=== PATIENT | male | born 1950 | race Caucasian/White ===

== ENCOUNTER 2017-06-04 10:37 | Day surgery (SDC) | payer MEDICARE, BC, MEDICAID ==
--- NOTE | 2017-06-04 07:24 | History and Physical Report ---
DATE: 06/03/2017. CHIEF COMPLAINT AND HISTORY OF CHIEF COMPLAINT: This patient presents with a history of a spinal surgery and pain which is quite extensive throughout the back and legs. He is here for an implanted spinal catheter infusion trial with hydromorphone to determine if the implantation of a permanent system can be of any value in pain control. He has had four spinal surgeries and was referred to this facility for consideration of placement of a pump. His treatment history has been extensive. Conservative therapy has all failed. His diagnostics confirm a decompression laminectomy from 3-4 to 5-1. PAST MEDICAL HISTORY: Chronic renal disease, chronic obstructive pulmonary disease, coronary artery disease, type 1 diabetes. MEDICATIONS ON ADMISSION: To be provided. ALLERGIES: To be provided. REVIEW OF SYSTEMS: The patient seems appropriate and in no acute distress. The remainder of the systems review shows difficulty sleeping, degenerative arthritis. PHYSICAL EXAMINATION: General: Height and weight are not available. Vital Signs: Not available. HEENT: Within normal limits. Lungs: Clear. Heart: Regular rate and rhythm. Abdomen: Nontender. Musculoskeletal: Examination of the musculoskeletal system shows diffuse pain and tenderness of the lumbar spine with an adjacent laminectomy scar. His lower extremity functionality is compromised. There are sensory field deficits across multiple distributions across the front and back surface of both legs. His motor functionality is reduced. His strength is reduced. Ambulation: Assistive device dependent. Neurologic: Cranial nerves are intact. IMPRESSION: 1. POSTLUMBAR LAMINECTOMY SYNDROME, ICD-10 CODE M96.1. 2. LUMBAR RADICULITIS, ICD-10 CODE M54.16 AND M54.17. PLAN: The patient is here for an implanted spinal catheter infusion trial with hydromorphone to determine if the implantation of a permanent pump can be of any value in his pain control. All of the potential risks, side effects, and complications have been carefully reviewed and discussed including spinal cord injury, nerve root injury, paralysis, and spinal headache. Information from the activity therapy specialist has been provided, reviewed, and discussed. He was put in contract with a [employer] hospital insurance representative who also reviewed the procedure, its risks, conduct, and what to expect with the trial and the implant. He also understands the spinal catheter will be implanted and that an incision will be made with anchoring of the catheter to the supraspinous fascia. The intent is to reduce the incidence of spinal headaches. An epidural blood patch ideally will be performed. However, the patient has had a decompression laminectomy in the optimal areas for the blood patch, and this may limit the option. The patient understands and has agreed to proceed. We will consider the procedure outpatient, although an overnight stay will be evaluated. The medications of choice are hydromorphone or Dilaudid. JOB NUMBER: [id number] cc: Martha Perales D.O. MTDD
[~2017-06-04 10:37] MED LIST: ACETAMINOPHEN 1,000 MG/100 ML BTL IV ONE; CEFAZOLIN 2 Gram 2 GM/50 ML BAG IVPB ONE; FAMOTIDINE 20MG TABLET PO ONE; HYDROMORPHONE PF 2MG/ML AMP 0.008 MG in 0.9 % SODIUM CHLORIDE 10ML VIA 0.996 ML IV ONE; HYDROMORPHONE PF 2MG/ML AMP 4 MG in 0.9 % SODIUM CHLORIDE 500ML 498 ML IV ONE; MECLIZINE 25 MG TABLET PO ONE; METOCLOPRAMIDE 10 MG TABLET PO ONE
[2017-06-04] MEDS ORDERED: CEFAZOLIN 1G VIAL IM ONE (10:38)
[2017-06-04] MEDS ORDERED: LIDOCAINE 2% MDV (20MG/ML) 20ML VIAL IV ONE (10:38)
[2017-06-04] MEDS ORDERED: PROPOFOL 10 MG/ML VIAL IV ONE (10:38)
[2017-06-04] MEDS ORDERED: FENTANYL PF 100MCG/2ML VIAL IV ONE (10:38)
[2017-06-04] MEDS ORDERED: MIDAZOLAM HCL 2MG/2ML VIAL IV ONE (10:38)
[2017-06-04] MEDS ORDERED: HYDROMORPHONE HCL 2 MG/ML VIAL IM PRN (14:17)
[2017-06-04] MEDS ORDERED: DIPHENHYDRAMINE HCL IV 50 MG/ML VIAL IVP PRN ×2 (14:17)
[2017-06-04] MEDS ORDERED: SENNOSIDES/DOCUSATE SODIUM UD CAPSULE PO PRN ×2 (14:17)
[2017-06-04] MEDS ORDERED: AL HYDROX/MAG HYDROX 30ML UD PO PRN (14:17)
[2017-06-04] MEDS ORDERED: METOCLOPRAMIDE 10 MG TABLET PO PRN (14:17)
[2017-06-04] MEDS ORDERED: HYDROCODONE/APAP 7.5/325MG TABLET PO PRN ×2 (14:17)
[2017-06-04] MEDS ORDERED: HYDROMORPHONE HCL 1 MG/ML SYRINGE IM PRN (14:17)
[2017-06-04] MEDS ORDERED: TEMAZEPAM 15 MG CAPSULE PO PRN ×2 (14:17)
[2017-06-04] MEDS ORDERED: DIPHENHYDRAMINE HCL 25 MG CAPSULE PO PRN ×2 (14:17)
[2017-06-04] MEDS ORDERED: ACETAMINOPHEN 325 MG TAB PO PRN ×2 (14:17)
[2017-06-04] MEDS ORDERED: METOCLOPRAMIDE HCL 10 MG/2 ML VIAL IVP PRN (14:17)
[2017-06-04] MEDS ORDERED: OXYCODONE/APAP 10MG-325MG TABLET PO PRN (14:17)
[2017-06-04] MEDS ORDERED: NALOXONE 0.4 MG/1 ML VIAL IVP PRN (14:17)
[2017-06-04] MEDS ORDERED: TIZANIDINE 2 MG PO PRN (14:22)
[2017-06-04] MEDS: RINGERS SOLUTION,LACTATED 1,000 ML IV SCH ×2 (15:13→23:50)
[2017-06-04] MEDS: OXYCODONE/APAP 10MG-325MG TABLET PO PRN (18:32)
[2017-06-04] MEDS: CELLCEPT 500 MG PO SCH (18:33)
[2017-06-04] MEDS: PROGRAF 1 MG PO SCH (19:39)
[2017-06-04] MEDS: PATIENT OWN MED: FUROSEMIDE 40 MG PO SCH (19:42)
[2017-06-04] MEDS: ALLOPURINOL 100 MG PO SCH (19:42)
[2017-06-04] MEDS: CEFAZOLIN 2 Gram 2 GM/50 ML BAG IVPB SCH (20:25)
--- NOTE | 2017-06-04 21:05 | Operative Note - Ferro ---
DATE OF SURGERY: 06/04/17 PREOPERATIVE DIAGNOSIS: 1. POSTLUMBAR LAMINECTOMY SYNDROME, ICD-10 CODE = M96.1 2. LUMBAR RADICULITIS, ICD-10 CODE = M54.16 AND M54.17. SURGERY: 1. FLUOROSCOPIC-GUIDED ACCESS SPINAL SPACE AT L2-3, PLACEMENT OF THIN-WALLED SPINAL CATHETER T12. 2. DIAGNOSTIC MYELOGRAPHY WITH RADIOLOGIC SUPERVISION AND INTERPRETATION. 3. SPINAL OPIOID BOLUS HYDROMORPHONE 0.002 MG SPINAL SPACE. 4. INCISION, SUBCUTANEOUS DISSECTION, AND ANCHORING OF SPINAL CATHETER TO SUPRASPINOUS FASCIA USING ANCHOR AND NONABSORBABLE SUTURE. 5. INCISION, SUBCUTANEOUS DISSECTION, AND CREATION OF SMALL SUBCUTANEOUS POUCH AT RIGHT POSTERIOR GLUTEAL MARGIN. 6. TUNNELING FROM SPINAL CATHETER INTO POSTERIOR POUCH AND EXTENDING SPINAL CATHETER INTO POSTERIOR POUCH. CATHETER RESECTED AND INTERFACED WITH SECONDARY CATHETER COMPONENT BY WAY OF A CONNECTOR TUNNELED 6 CM SUPERIOR EXITING SKIN. 7. INTERFACE EXTERNAL CATHETER WITH INFUSION DEVICE SET TO DELIVER HYDROMORPHONE AT 0.04 MG A DAY. 8. NO EPIDURAL BLOOD PATCH. 9. CLOSURE OF MIDLINE INCISION WITH VICRYL FOR FASCIA, RUNNING SUBCUTICULAR VICRYL FOR SKIN, DERMABOND CLOSURE APPROXIMATING WOUND. CLOSURE OF RIGHT POSTERIOR GLUTEAL MARGIN INCISION WITH RUNNING NYLON. DRESSINGS PLACED SECURING SPINAL CATHETER AND ALL CONNECTIONS UNDER STERILE DRESSING. SURGEON: LANRE DIAS D.O. ANESTHESIA: LOCAL SEDATION. ANESTHESIA PROVIDER: LAUREN VASQUEZ CRNA. INDICATIONS: This patient presents with a history of multiple spinal surgeries and pain, which is diffuse through the back, hip, and leg. Due to the failure of all therapy and consistent with his referral for a pump, he is here for an implanted spinal catheter infusion trial of Hydromorphone to determine if the implantation of a permanent system can be of any value in his pain control. SURGERY: Intravenous line, vital sign monitoring, IV sedation, prepped and draped sterile technique. Patient positioned prone. Sterile prep, sterile technique. Under imaging, the spinal interspace starting at L5, 4, 3, and then 2 were were imaged and evaluated. The patient had a decompression laminectomy and what documentation was suggested was 3-4 to 5-1 but appeared to be 2-3 to 5- 1. The spinal interspace at L2-3 was marked, infiltrated using a #20 gauge spinal needle, paramedian approach and bevel with long access was inserted into the spinal space. Imaging with AP and lateral was used to verify needle position as it approached the spinal space. With CSF flow, a thin-walled spinal catheter was advanced, positioned T12. Needle slightly retracted to stop CSF leak. The catheter was clamped by had a stylet, which itself stopped CSF leak. The skin above and below the needle infiltrated, incision made, and subcutaneous dissection was conducted into the supraspinous fascia. The needles were removed and the catheter was anchored to the supraspinous fascia with an anchor device and nonabsorbable suture. There was CSF noted coming through the catheter with smooth flow noted. The catheter was clamped. Once the catheter was anchored with the nonabsorbable suture, a diagnostic myelography was performed. 1 mL of contrast was slowly injected. There as no response on the patient and normal lateralized myelogram flow was identified confirming appropriate catheter position and appropriate flow characteristics. With all of this noted, a bolus of Hydromorphone 0.002 mg given in the spinal space. During the placement of the needle, there were no fasciculations, no pain noted on the part of the patient, no lower extremity movements. A small pouch at the right posterior gluteal margin, a site ultimately picked by the patient for the pump itself, was infiltrated, an incision made, and subcutaneous dissection was conducted to form a small pouch subcutaneously. The spinal catheter was then tunneled to this pouch. Once into the pouch, interfaced with the second catheter component by way of a connector. The secondary catheter component was then tunneled superior exiting the skin. The external catheter component was then interfaced with an external pump set to deliver Hydromorphone at 0.04 mg per day. The midline was closed using Vicryl for fascia, running subcuticular Vicryl for skin, DermaBond closure. The right posterior pouch was closed with a running nylon suture. Although an epidural blood patch had been planned, because of the extensive spinal surgery, it was felt to be unsafe and an epidural blood patch was not performed. The catheter along with the incision was then covered with sterile dressing so that the catheter and all connections were under sterile dressing. With the infusion running, he was then transported to the Recovery Room supine, pillow under head and knees. Although no blood patch was performed, he will be kept flat for four hours and then slowly elevated for one and then be evaluated for discharge home. DISCHARGE INSTRUCTIONS: 1. The sites will remain clean and dry. No showering or bathing in any way that would disrupt dressings. If it happens, contact the Clinic. 2. Standard medications resumed, including the antibiotic, Levaquin 500 mg once a day for 14 days. 3. Spinal opioid side-effects of respiratory depression, nausea, vomiting, constipation, urinary retention, lightheadedness, or rash have all been discussed and reviewed. Should this happen, he should contact the Clinic or go to the local Emergency Room. All other instructions provided, numbers to contact if problems given. He will then be evaluated in the office for an increase in the next 48 hours. cc: Dr. Parviz Hurst and Dr. Escalera, Neurosurgery [facility] JOB NUMBER: [id number] [facility]
[2017-06-05] MEDS: CEFAZOLIN 2 Gram 2 GM/50 ML BAG IVPB SCH ×2 (03:13→08:26)
[2017-06-05] MEDS: OXYCODONE/APAP 10MG-325MG TABLET PO PRN (04:56)
[2017-06-05] MEDS: ALLOPURINOL 100 MG PO SCH (06:54)
[2017-06-05] MEDS: CELLCEPT 500 MG PO SCH (06:55)
[2017-06-05] MEDS: PATIENT OWN MED: FUROSEMIDE 40 MG PO SCH (06:56)
[2017-06-05] MEDS: PROGRAF 1 MG PO SCH (06:57)
[2017-06-05] MEDS: RINGERS SOLUTION,LACTATED 1,000 ML IV SCH (06:59)
[2017-06-05] MEDS ORDERED: NEXIUM 40 MG PO SCH (07:00)
[2017-06-05] MEDS ORDERED: PREDNISONE 10 MG PO SCH (08:00)
[2017-06-05] MEDS ORDERED: PATIENT OWN MED: EZETIMIBE 10 MG PO SCH (10:00)
[2017-06-05] MEDS ORDERED: PATIENT OWN MED: METOPROLOL 25 MG PO SCH (10:00)
--- NOTE | 2017-06-05 10:31 | RADIOLOGY REPORT ---
EXAM: LUMBAR SPINE, SINGLE VIEW HISTORY: POST PAIN PUMP TRIAL. TECHNIQUE: A single AP view of the lumbar spine was obtained. Comparison: None. FINDINGS: No appreciable battery pack identified overlying the field of view. There is a very faint catheter like density extending somewhat transversely across the right mid abdomen to the spine at about the level of the L3 vertebra. It is very difficult to confidently follow this faint catheter like density once it overlies the spine although it probably does ascend a bit. Correlation with the procedure is suggested. There is probably extensive laminectomy in the mid to lower lumbar spine. There is a lumbar curve convexed to the left. Extensive degenerative changes in the lumbar spine. IMPRESSION: THERE IS A VERY FAINT CATHETER LIKE DENSITY OVERLYING THE MID LUMBAR SPINE DESCRIBED ABOVE. POSTOP LAMINECTOMY IN THE MID TO LOWER LUMBAR SPINE WITH EXTENSIVE DEGENERATIVE CHANGE IN THE LUMBAR SPINE AND A LUMBAR CURVE TO THE LEFT. JOB NUMBER: [id number] [facility]
== END 2017-06-05 09:07 | disposition home or self-care (01) ==
LOC: SUR 10:37 → MEDSURG 14:06 → SUR 06-05 09:07
PROVIDERS: ATTEND Pain Medicine Interventional Pain Medicine
DX: M96.1 Postlaminectomy syndrome, not elsewhere classified (principal); M54.16 Radiculopathy, lumbar region; M54.17 Radiculopathy, lumbosacral region; I10 Essential (primary) hypertension; E78.00 Pure hypercholesterolemia, unspecified
CPT/HCPCS: 72020; 94760; J0690; J1170; J7040; J7120

== ENCOUNTER 2017-06-18 10:43 | Day surgery (SDC) | payer MEDICARE, BC, MEDICAID ==
--- NOTE | 2017-06-18 07:08 | History and Physical - Ferro ---
CHIEF COMPLAINT/HISTORY OF CHIEF COMPLAINT: This patient presents with an ongoing implanted spinal catheter infusion trial with Hydromorphone. To this point we have been achieving 50-75% pain control with improved functionality, mobility and better quality of life. The patient has been given the option to remove the implanted catheter and implant the device and he has opted to implant the device. PAST MEDICAL HISTORY: Chronic renal disease, chronic obstructive pulmonary disease, coronary artery disease, and diabetes Type 1. MEDICATIONS ON ADMISSION: List to be provided. ALLERGIES: None listed. SYSTEMS REVIEW: The patient is appropriate in no acute distress. The remainder of the systems review is positive for difficulty sleeping and degenerative arthritis. PHYSICAL EXAMINATION: Height and weight are not known. Vital signs - Blood pressure is 152/74, pule is 67, respirations are 20, O2 saturation is 97%. HEENT: Within normal limits. LUNGS: Coarse and bronchitic. HEART: Rapid and regular. ABDOMEN: Nontender. MUSCULOSKELETAL: Examination shows the dressings for the implanted catheter trial intact. The externalized pump is functional and intact. Underlying pain pattern is a post laminectomy radiculitis with pain extending across the back and into both legs. Sensory marx and motor evaluation are unchanged. There are mild sensory and motor abnormalities across both front and back of both legs. Strength is reduced. Ambulation - Assistive device dependent. NEUROLOGIC: Cranial nerves are intact. IMPRESSION: 1. POST LUMBAR LAMINECTOMY SYNDROME, ICD-10 CODE M96.1. 2. LUMBAR RADICULITIS, ICD-10 CODE M54.16 AND M54.17. 3. IMPLANTED SPINAL CATHETER INFUSION TRIAL OF HYDROMORPHONE. PLAN: The patient is here for completion of the trial with implant of the pump. At this point we will consider an overnight stay, but the procedure may be an outpatient based option. Potential side effects and complications have been reviewed and discussed, he understands and consents. JOB NUMBER: [id number] MTDD
[~2017-06-18 10:43] MED LIST changes: +HYDROMORPHONE HCL 0.032 GM in 0.9 % SODIUM CHLORIDE 10ML VIA 40 ML IV ONE; +HYDROMORPHONE PF 2MG/ML AMP 0.004 MG in 0.9 % SODIUM CHLORIDE 10ML VIA 0.998 ML IV ONE; -HYDROMORPHONE PF 2MG/ML AMP 0.008 MG in 0.9 % SODIUM CHLORIDE 10ML VIA 0.996 ML IV ONE; -HYDROMORPHONE PF 2MG/ML AMP 4 MG in 0.9 % SODIUM CHLORIDE 500ML 498 ML IV ONE
[2017-06-18] MEDS ORDERED: PROPOFOL 10 MG/ML VIAL IV ONE (10:44)
[2017-06-18] MEDS ORDERED: CEFAZOLIN 1G VIAL IM ONE (10:44)
[2017-06-18] MEDS ORDERED: LIDOCAINE 1% W/EPI 1:200,000 MPF 30ML SQ ONE (10:44)
[2017-06-18] MEDS ORDERED: BUPIVACAINE 0.5% W/EPI MPF 30 ML VIAL IVP ONE (10:44)
[2017-06-18] MEDS ORDERED: HYDROMORPHONE HCL 2 MG/ML VIAL IV ONE (10:44)
[2017-06-18] MEDS ORDERED: MIDAZOLAM HCL 2MG/2ML VIAL IV ONE (10:44)
--- NOTE | 2017-06-18 16:33 | Operative Note - Ferro ---
DATE OF SURGERY: 06/18/17 PREOPERATIVE DIAGNOSES: 1. POST LUMBAR LAMINECTOMY SYNDROME, ICD-10 CODE = M96.1. 2. LUMBAR RADICULITIS, ICD-10 CODE = M54.16 AND M54.17. 3. IMPLANTED SPINAL CATHETER INFUSION TRIAL HYDROMORPHONE. OPERATION: 1. FLUOROSCOPICALLY-GUIDED INCISION, SUBCUTANEOUS DISSECTION, AND REMOVAL OF EXTERNAL CATHETER. 2. INCISION, SUBCUTANEOUS DISSECTION, AND CREATION OF SUBCUTANEOUS POUCH AT RIGHT POSTERIOR GLUTEAL MARGIN FOR PLACEMENT OF PUMP IDENTIFIED A MEDTRONIC 40 ML PROGRAMMABLE. 3. INCISION, SUBCUTANEOUS DISSECTION, AND REVISION OF INTERNAL SPINAL CATHETER RESECTED AND INTERFACED WITH SECOND CATHETER COMPONENT BY WAY OF A CONNECTOR. INTERFACED RESECTED CATHETER TO PUMP PLACED ONTO THE FIELD, MEDTRONIC 40 ML PROGRAMMABLE PRE-FILLED HYDROMORPHONE AT 1 MG PER ML. CATHETER INTERFACED AND CONNECTED TO PUMP. 4. PLACEMENT OF PUMP INTO FORMED POUCH AT RIGHT POSTERIOR GLUTEAL MARGIN TO ACCOMMODATE PUMP. PUMP SECURED TO POSTERIOR FASCIA WITH NONABSORBABLE SUTURE, THREE POINT PUMP EYELETS. 5. PLACEMENT OF CURVED 24-GAUGE LOPEZ NEEDLE WITH ACCESS PORT PROGRAMMABLE PUMP , ASPIRATION CLEARING OF 1 ML OF CATHETER CONTENTS CLEARING CATHETER OF OPIOID AND CSF MIXTURE. 6. CONTRAST INJECTION THROUGH THE ACCESS PORT, THE RESULTING MYELOGRAM WITH RADIOLOGIC SUPERVISION AND INTERPRETATION SHOWED CONTRAST MOVING THROUGH THE INTERNAL NETWORK OF THE PUMP. NO KINKS, BENDS, OR LEAKS. PUMP CATHETER CONNECTION IDENTIFIED. NO KINKS OR LEAKS. TIP OF THE CATHETER AT T11/12 IDENTIFIED WITH SMOOTH LINEAR FLOW OF CONTRAST NOTED, APPROPRIATE MYELOGRAM CHARACTERISTICS CONFIRMING FUNCTIONALITY AND PATENCY OF CATHETER AND CONNECTIONS. 7. CLOSURE OF INCISIONS, VICRYL FOR FASCIA, RUNNING SUBCUTICULAR VICRYL FOR SKIN. DERMABOND CLOSURE. PUMP PROGRAMMED TO DELIVER CONTINUOUS INFUSION HYDROMORPHONE AT 0.1 MG A DAY. SURGEON: LANRE DIAS D.O. ANESTHESIA: LOCAL SEDATION. ANESTHESIA PROVIDER: BRANDON MORALES CRNA. INDICATION: This patient presents with an implanted spinal catheter infusion trial Hydromorphone had 75 plus-percent pain control. Due to the failure of other therapies, he is here for full implantation of a system. PROCEDURE: Intravenous line, vital sign monitoring, IV sedation, prepped and draped with sterile technique. Patient position prone. All of the external dressing removed. At the right posterior gluteal margin, a small pouch was infiltrated with local, incision made, and subcutaneous dissection was used to open the subcutaneous pouch at the right posterior gluteal margin. This exposed the interface between the internal and external catheter. This interface was clamped, the external catheter cut, and removed by pulling away from the skin and away from the incision. Subcutaneous dissection was then conducted at this site to create a subcutaneous pouch of suitable size and depth for the pump identified as a Medtronic 40 mL Programmable. The internal catheter was then resected, revised, and interfaced with a second catheter component by way of a connector. This second catheter component was then used to interface the pump, which had been placed onto the field 40 mL Programmable filled with Hydromorphone at 1 mg per mL. The pump catheter connection was secured. Antibiotic irrigation and Bovie for hemostasis. The pump was then placed into the pouch and secured to the fascia with nonabsorbable suture at three points pump eyelets. With the pump firmly in the pouch, a 24-gauge Lopez needle was inserted into the access port and 1 mL of catheter content was aspirated clearing the catheter of opioid and CSF mixture. Contrast was then injected through the access port; the resulting myelogram with radiologic supervision and interpretation showed contrast moving through the internal network of the pump. No problems. Pump catheter connection was then visualized. There were no kinks or contrast leaks. Tip of the catheter at 11/12 identified with normal flow characteristics in the spinal space confirmed. Appropriate functionality of the system was noted. The incision was then closed Vicryl for fascia, running subcuticular Vicryl for skin, and a Dermabond system used to approximate the wound. He was transported to the Recovery Room after the pump was programmed to deliver Hydromorphone continuously, simple continuous, at 0.1 mg per day. He was monitored until stable then prepared for discharge. No side- effects. DISCHARGE INSTRUCTIONS: 1. Sites remain clean and dry. No showering or bathing in any way that would disrupt dressings. If it happens, contact the clinic. 2. Standard medications resumed including Levaquin, the antibiotic, 500 mg once a day for 14 days. 3. Spinal opioid side-effects; respiratory depression, nausea, vomiting, constipation, urinary retention, lightheadedness or rash have all been discussed and reviewed. All other instructions provided, numbers to contact, problems given. At that point, he was then discharged to home. The office will contact the patient in 12-24 hours for an incisional check in 7-10 days. He has been advised on all the potential side-effects and complications and given the numbers to contact with any abnormal findings noted. cc: Dr. Christian Escalera - Neurosurgery at [facility] Dr. Parviz Hurst JOB NUMBER: [id number] MTDD
== END 2017-06-18 15:30 | disposition home or self-care (01) ==
LOC: SUR 10:43
PROVIDERS: ATTEND Pain Medicine Interventional Pain Medicine
DX: M96.1 Postlaminectomy syndrome, not elsewhere classified (principal); M54.16 Radiculopathy, lumbar region; M54.17 Radiculopathy, lumbosacral region; I10 Essential (primary) hypertension; E78.5 Hyperlipidemia, unspecified; Z94.0 Kidney transplant status
CPT/HCPCS: 62367; 62362; 00300; Q9967; J1170 ×2; J0690; C1755